=== PATIENT | female | born 1955 | race Caucasian/White ===

== ENCOUNTER 2020-10-21 14:47 | Outpatient (CLI) | payer BC | END 2020-10-21 14:48 | disposition home or self-care (01) | LOC: CSHMAMMO 14:47 | PROVIDERS: ATTEND Family Medicine | DX: M81.0 Age-related osteoporosis without current pathological fracture (principal); M85.89 Other specified disorders of bone density and structure, multiple sites | CPT/HCPCS: 77080 ==

== ENCOUNTER 2023-09-06 15:06 | Outpatient (CLI) | payer MEDICARE, OTHER | END 2023-09-06 15:07 | disposition home or self-care (01) | LOC: CSHMAMMO 15:06 | PROVIDERS: ATTEND Family Medicine | DX: M81.0 Age-related osteoporosis without current pathological fracture (principal); N95.1 Menopausal and female climacteric states; M85.852 Other specified disorders of bone density and structure, left thigh | CPT/HCPCS: 77080 ==

== ENCOUNTER 2023-09-08 08:10 | Outpatient (CLI) | payer MEDICARE, OTHER ==
[2023-09-08] MEDS ORDERED: Iopamidol 300 61% 100 ML VIAL FS ONE (12:54)
== END 2023-09-08 08:11 | disposition home or self-care (01) ==
LOC: CSHRAD 08:10
PROVIDERS: ATTEND Family Medicine
DX: R10.12 Left upper quadrant pain (principal)
CPT/HCPCS: 74170; 82565

== ENCOUNTER 2024-11-01 07:22 | Outpatient (CLI) | payer MEDICARE, OTHER ==
[2024-11-01 10:09] LABS: Estimated GFR - POC 98.0
[2024-11-01] MEDS ORDERED: Iopamidol 300 61% 100 ML VIAL FS ONE (11:34)
== END 2024-11-01 07:23 | disposition home or self-care (01) ==
LOC: CSHCT 07:22
PROVIDERS: ATTEND Family Medicine
DX: R10.10 Upper abdominal pain, unspecified (principal); R79.89 Other specified abnormal findings of blood chemistry; R94.5 Abnormal results of liver function studies; R16.0 Hepatomegaly, not elsewhere classified
CPT/HCPCS: 74170; 82565; Q9967